=== PATIENT | female | born 1990 | race Caucasian/White ===

== ENCOUNTER 2025-04-02 13:01 | Emergency (ER) | payer OTHER, SELFPAY ==
[2025-04-02 13:19] VITALS: BP 143/97; PULSE 96; RESP 16; TEMP 36.8; O2SAT 100
--- NOTE | 2025-04-02 13:44 | ED.URI ---
HPI - URI/Sore Throat General Chief Complaint: Upper Respiratory Infection Stated Complaint: Scratchy throat congestion Time Seen by Provider: 04/02/25 13:30 Source: patient Mode of arrival: ambulatory Limitations: no limitations History of Present Illness HPI Narrative: 34 yo F presents with c/o sore throat, chills for 2 days. No other complaints. Works at a [employer]. No known strep exposure. All systems reviewed and negative except as noted above. Related Data Allergies Allergy/AdvReac Type Severity Reaction Status Date / Time No Known Allergies Allergy Verified 04/02/25 13:11 [facility] Past Medical History Medical History Migraine headache Social History Social History Smoking status: Never smoker Second hand tobacco smoke exposure: No Alcohol intake: never Substance use: never Substance use type: does not use Lack of Transportation: No Lack of Food: Never True Current Housing: I Have Housing Concerned About Future Housing: No Difficulty Paying Gas/Electric Bills: No Difficulty Paying for Meds: No Currently Unemployed: No Difficulty w/ Childcare or Family Care: No Living arrangements: with family Gender identity (if verbalized by the patient): Female Spiritual care concerns: No Agree to blood products: Yes Comments At time of signature, agree with nursing past medical, surgical, social and family history. There is no relevant family history pertinent to the presenting complaint. Exam Narrative: GENERAL: This is a well-nourished, well-developed patient, in no apparent distress. HEAD: normocephalic, atraumatic. EYES: PERRL. Sclera clear/white. Vision is grossly intact. EARS: External ears normal, auditory canals clear and without drainage, TMs normal without perforation. Hearing grossly intact. NOSE: External nose normal with no obvious nasal discharge, nares without redness, no rhinorrhea. THROAT: Mucous membranes moist, mild erythema, tonsils 1+ bilaterally without exudates NECK: Neck supple, non-tender without lymphadenopathy, masses or thyromegaly. CARDIOVASCULAR: Regular rate and rhythm without murmurs, gallops, or rubs. RESPIRATORY: Clear to auscultation. Breath sounds equal bilaterally. No wheezes, rales, or rhonchi. SKIN: warm, Dry, intact with no suspicious lesions or rash, good texture and turgor. NEURO: awake, alert, and oriented to person, place and time. There were no obvious focal neurologic abnormalities. EXTREMITIES: No joint tenderness, effusion, or edema noted. Course Course Level of Care: Express Care Visit Vital Signs Vital signs: Vital Signs Temperature 36.8 C 04/02/25 13:19 Pulse Rate 96 04/02/25 13:19 Respiratory Rate 16 04/02/25 13:19 Blood Pressure 143/97 H 04/02/25 13:19 Pulse Oximetry 100 04/02/25 13:19 Temperature 36.8 C 04/02/25 13:19 Pulse Rate 96 04/02/25 13:19 Respiratory Rate 16 04/02/25 13:19 Blood Pressure 143/97 H 04/02/25 13:19 Pulse Oximetry 100 04/02/25 13:19 reviewed MDM - URI/Sore Throat MDM Narrative Medical decision making narrative: positive rapid strep. Will treat with amoxicillin. Patient is well-appearing, nontoxic. Agrees with plan of care. Differential Diagnosis Differential diagnosis: Likely upper respiratory infection, sinusitis, viral infection, influenza and pharyngitis Discharge Plan Discharge Clinical Impression: Strep throat Patient Disposition: Home Condition: Stable Instructions: Antibiotic Form, Strep Throat (ED) Additional Instructions: Your strep test was positive today. Take antibiotic as prescribed until gone. Take Tylenol or ibuprofen every 6-8 hours as needed for pain and fever. Drink plenty of fluids and rest. Follow-up with your doctor if symptoms are not improving. Patient Language: Nicar[place] Prescriptions: New amoxicillin 500 mg capsule 500 mg PO Q12H 10 Days Qty: 20 0RF No Action buspirone 5 mg tablet 5 mg PO TID PRN (Reason: stress) Qty: 270 1RF sertraline 100 mg tablet 100 mg PO DAILY Qty: 90 1RF Follow-up/Referrals: Elvira Santos MD [Primary Care Provider] - Stand Alone Forms: Work/School Release IP Time of Disposition: 13:47
[2025-04-02 13:46] LABS: EDSTREPNEGPOS1 Positive (Negative)
== END 2025-04-02 13:54 | disposition home or self-care (01) ==
PROVIDERS: Emergency Provider Nurse Practitioner Family; PCP Family Medicine
DX: J02.0 Streptococcal pharyngitis (principal)
CPT/HCPCS: 87880; 99213; G0463